=== PATIENT | male | born 1980 | race Caucasian/White ===

== ENCOUNTER 2016-05-03 10:50 | Emergency (ER) | payer MEDICAID ==
[2016-05-03] MEDS ORDERED: NS 1,000 ML IV ONE (11:13)
[2016-05-03] MEDS ORDERED: LORazepam 2 MG/ML INJ IVP ONE ×2 (11:13→13:06)
[2016-05-03] MEDS ORDERED: PANTOPRAZOLE SODIUM 40 MG in NS 100 ML IV ONE (11:13)
--- NOTE | 2016-05-03 11:16 | EDPHY ---
H & P Time Seen by Provider: 05/03/16 11:00 HPI/ROS: CHIEF COMPLAINT: Vomiting HISTORY OF PRESENT ILLNESS: 35-year-old male presents to the emergency department by ambulance complaining of multiple episodes of vomiting and feeling extremely anxious. The patient has a history of anxiety. Patient recently moved here from [place] and has been on Klonopin in the past for his anxiety although since he has lived in [place] the last month and half he has been without his Klonopin. Feels extremely anxious and has vomited multiple times. He states any time he moves he becomes extremely anxious and vomits. Has had this in the past. He describes diffuse abdominal pain. Drinks alcohol on occasion. He does smoke marijuana daily. No diarrhea. No known ill contacts. No other recent travel. No fevers or chills. No chest pain or difficulty breathing currently. The patient has also been on Lexapro in the past however he did not find this helpful and did not continue taking this medication. REVIEW OF SYSTEMS: Constitutional: No fever, no chills. Eyes: No double or blurry vision. ENT: No sore throat. Respiratory: No cough, no shortness of breath. Cardiac: No chest pain. Gastrointestinal: Abdominal pain, vomiting. No diarrhea. Genitourinary: No dysuria. Musculoskeletal: No neck or back pain. Skin: No rashes. Neurological: No headache. Past Medical/Surgical History: Anxiety, marijuana use Social History: Single from [place] Smoking Status: Current every day smoker Physical Exam: General Appearance: Alert, anxious, hyperventilating Eyes: Pupils equal and round. Extraocular motions are all intact. ENT: Mouth: Mucous membranes very dry. Respiratory: No wheezing, rhonchi, or rales, lungs are clear to auscultation. Cardiovascular: Regular rate and rhythm. Gastrointestinal: Abdomen is soft. Diffusely tender to palpate with no localizing pain. No rebound, guarding or masses noted. Neurological: Alert and oriented x 3, cranial nerves II through XII grossly intact Skin: Warm and dry, no rashes. Musculoskeletal: Nontender to palpate along the cervical, thoracic or lumbar spine. Neck is supple. No nuchal rigidity. Extremities: Full range of motion and no peripheral edema. Psychiatric: Patient is oriented X 3, there is no agitation. Constitutional: Initial Vital Signs Temperature (C) 36.4 C 05/03/16 10:50 Heart Rate 57 L 05/03/16 10:50 Respiratory Rate 22 H 05/03/16 10:50 Blood Pressure 152/93 H 05/03/16 10:50 O2 Sat (%) 100 05/03/16 10:50 O2 Delivery Mode Room Air O2 (L/minute) 2 Allergies/Adverse Reactions: cetylpyridinium chloride [From Cepacol] Allergy (Verified 05/03/16 11:05) Home Medications: Medication Instructions Recorded Methadone Oral Liquid 60 mg PO DAILY 01/21/16 LORazepam [Ativan] 1 mg PO Q6-8PRN PRN #10 tab 05/03/16 Medical Decision Making ED Course/Re-evaluation: 35-year-old male presents to the emergency department with multiple episodes of vomiting and feeling extremely anxious. He recently stopped his Klonopin. Patient had an IV established and the patient was given 1 mg of Ativan IV, 4 mg of Zofran IV and IV normal saline. He was given additional 1 mg Ativan IV. The patient was feeling much better. He was tolerating p.o. fluids. He was given a prescription for additional tablets of Ativan and given primary care referral. Differential Diagnosis: Including but not limited to anxiety, vomiting, dehydration, withdrawal - Data Points Laboratory Results: Laboratory Results 05/03/16 11:00 05/03/16 11:00 05/03/16 05/03/16 11:00 11:00 WBC 10.85 10^3/uL H 10^3/uL (3.80-9.50) RBC 5.44 10^6/uL 10^6/uL (4.40-6.38) Hgb 16.7 g/dL g/dL (13.7-17.5) Hct 47.0 % % (40.0-51.0) MCV 86.4 fL fL (81.5-99.8) MCH 30.7 pg pg (27.9-34.1) MCHC 35.5 g/dL g/dL (32.4-36.7) RDW 11.9 % % (11.5-15.2) Plt Count 349 10^3/uL 10^3/uL (150-400) MPV 10.0 fL fL (8.7-11.7) Neut % (Auto) 89.3 % H % (39.3-74.2) Lymph % (Auto) 6.8 % L % (15.0-45.0) [place] % (Auto) 2.9 % L % (4.5-13.0) Eos % (Auto) 0.0 % L % (0.6-7.6) Baso % (Auto) 0.5 % % (0.3-1.7) Nucleat RBC Rel Count 0.0 % % (0.0-0.2) Absolute Neuts (auto) 9.69 10^3/uL H 10^3/uL (1.70-6.50) Absolute Lymphs (auto) 0.74 10^3/uL L 10^3/uL (1.00-3.00) Absolute Monos (auto) 0.32 10^3/uL 10^3/uL (0.30-0.80) Absolute Eos (auto) 0.00 10^3/uL L 10^3/uL (0.03-0.40) Absolute Basos (auto) 0.05 10^3/uL 10^3/uL (0.02-0.10) Absolute Nucleated RBC 0.00 10^3/uL 10^3/uL (0-0.01) Immature Gran % 0.5 % % (0.0-1.1) Immature Gran # 0.05 10^3/uL 10^3/uL (0.00-0.10) Sodium 143 mEq/L mEq/L (134-144) Potassium 4.3 mEq/L mEq/L (3.5-5.2) Chloride 106 mEq/L mEq/L (97-110) Carbon Dioxide 20 mEq/l L mEq/l (22-31) Anion Gap 17 mEq/L H mEq/L (8-16) BUN 12 mg/dL mg/dL (7-23) Creatinine 0.9 mg/dL mg/dL (0.7-1.3) Estimated GFR > 60 Glucose 122 mg/dL H mg/dL (70-100) Calcium 10.4 mg/dL mg/dL (8.5-10.4) Medications Given: Discontinued Medications Sodium Chloride (Ns) 1,000 mls @ 0 mls/hr IV ONCE ONE PRN Reason: Wide Open Stop: 05/03/16 11:14 Last Admin: 05/03/16 11:22 Dose: 1,000 mls Pantoprazole Sodium 40 mg/ (Sodium Chloride) 100 mls @ 200 mls/hr IV EDNOW ONE Stop: 05/03/16 11:42 Last Admin: 05/03/16 11:22 Dose: 100 mls Lorazepam (Ativan Injection) 1 mg IVP EDNOW ONE Stop: 05/03/16 11:14 Last Admin: 05/03/16 11:22 Dose: 1 mg Lorazepam (Ativan Injection) 1 mg IVP EDNOW ONE Stop: 05/03/16 13:07 Last Admin: 05/03/16 13:15 Dose: 1 mg Departure - Departure Disposition: Home, Routine, Self-Care Clinical Impression: Anxiety Vomiting Qualifiers: Vomiting type: unspecified Vomiting Intractability: non-intractable Nausea presence: with nausea Qualified Code(s): R11.2 - Nausea with vomiting, unspecified Condition: Good Instructions: Acute Nausea and Vomiting (ED), Anxiety (ED) Additional Instructions: Follow-up with primary care provider to discuss medications you can use for your anxiety. Return to the emergency department if you developed recurring vomiting or if you feel worse in any way. Referrals: Kandi Herrera DO [Doctor of Osteopathy] - 2-3 days, call for appt. (Primary care provider educational program director) Prescriptions: LORazepam [Ativan] 1 mg PO Q6-8PRN PRN #10 tab PRN Reason: Anxiety
[2016-05-03 11:21] LABS: % IMMATURE GRANULYOCYTES 0.5 % (0.0-1.1); ABSOLUTE IMMATURE GRANULOCYTES 0.05 10^3/uL (0.00-0.10); ADD DIFF? NO; ADD MORPH? NO; ADD SCAN? NO; ATYPICAL LYMPHOCYTE FLAG 0 (0-99); FRAGMENT RBC FLAG 0 (0-99); HEMOGLOBIN 16.7 g/dL (13.7-17.5); LEFT SHIFT FLG 0 (0-99); LIPEMIA HEMOLYSIS FLAG 90 (0-99); MEAN CELL HEMOGLOBIN 30.7 pg (27.9-34.1); MEAN CELL HEMOGLOBIN CONCENTR. 35.5 g/dL (32.4-36.7); MEAN CELL VOLUME 86.4 fL (81.5-99.8); PLATELET CLUMPS FLAG 10 (0-99); PLATELET COUNT 349 10^3/uL (150-400); RED BLOOD CELL COUNT 5.44 10^6/uL (4.40-6.38); RED CELL DISTRIBUTION WIDTH 11.9 % (11.5-15.2)
[2016-05-03 11:33] LABS: ANION GAP 17 mEq/L (8-16); CALCIUM 10.4 mg/dL (8.5-10.4); CARBON DIOXIDE 20 mEq/l (22-31); CHLORIDE 106 mEq/L (97-110); CREATININE 0.9 mg/dL (0.7-1.3); GLOMERULAR FILTRATION RATE > 60; GLUCOSE 122 mg/dL (70-100); POTASSIUM 4.3 mEq/L (3.5-5.2); SODIUM 143 mEq/L (134-144)
[2016-05-03 15:25] VITALS: BP 123/79; PULSE 62; RESP 16; TEMP 98.8; O2SAT 98
== END 2016-05-03 15:26 | disposition home or self-care (01) ==
LOC: EDUNIT#
DX: F41.9 Anxiety disorder, unspecified (principal); R11.2 Nausea with vomiting, unspecified; F17.200 Nicotine dependence, unspecified, uncomplicated
CPT/HCPCS: 96365; J2060

== ENCOUNTER 2016-05-28 15:52 | Emergency (ER) | payer MEDICAID ==
[2016-05-28 16:07] VITALS: O2SAT 95
[2016-05-28] MEDS ORDERED: NS 1,000 ML IV ONE (16:13)
--- NOTE | 2016-05-28 16:17 | EDPHY ---
H & P Stated Complaint: FELL 13FT OFF LADDER HIT HEAD/BACK/NECK HPI/ROS: CHIEF COMPLAINT: Fall from 26 feet HISTORY OF PRESENT ILLNESS: Patient is a 35-year-old man who states that he fell off of a ladder. He landed on his back and head. He has a small abrasion and hematoma to his right occiput as well as abrasions to his shoulder and back. He states that he feels confused and slightly dazed. He is A&O x2. He states that it is Thursday rather than Thursday. He denies any recent drug or alcohol use. Denies any significant past medical history. He is moving all extremities. He walked into the emergency department. He is placed in a cervical collar by nursing staff. His vital signs are stable. He denies chest pain or abdominal pain. Denies shortness of breath. REVIEW OF SYSTEMS: Constitutional: denies: chills, fever, recent illness, recent injury EENTM: denies: blurred vision, double vision, nose congestion Respiratory: denies: cough, shortness of breath Cardiac: denies: chest pain, irregular heart rate, lightheadedness, palpitations Gastrointestinal/Abdominal: denies: abdominal pain, diarrhea, nausea, vomiting, blood streaked stools Genitourinary: denies: dysuria, frequency, hematuria, pain Musculoskeletal: See HPI Skin: denies: lesions, rash, jaundice, bruising Neurological: denies: headache, numbness, paresthesia, tingling, dizziness, weakness Hematologic/Lymphatic: denies: blood clots, easy bleeding, easy bruising Immunologic/allergic: denies: HIV/AIDS, transplant Nursing assessment reviewed Vital signs reviewed normal Patient is mildly confused and slightly lethargic but answering most questions appropriately c-collar in place, HEAD: Small abrasion and small hematoma to left occipital region no raccoon eyes, no Colon sign. NECK: is nontender and has painless range of motion, trachea is midline, collar left in place due to mental status EYES: pupils equal round reactive to light and accommodating, extraocular muscles are intact no palsy or entrapment, no subconjunctival hemorrhage ENT: Normal external inspection, airway intact, no dental or oral injuries, no clotted nasal blood, no septal hematoma, no hemotympanum CARDIOVASCULAR: heart sounds normal, not tachycardic or bradycardic, Chest is non-tender no rib tenderness no palpable fracture, no crepitus, no subcutaneous emphysema RESPIRATORY: no splinting, no paradoxical movements, gross sounds normal, no wheezes no rales no rhonchi, no respiratory distress ABDOMEN: Abdomen is nontender in all 4 quadrants no guarding no rebound, no distention, no hernias, no masses or bruits. GENITAL/RECTAL: Normal external inspection, no blood at urethral meatus, Stable pelvis NEUROLOGIC/PSYCH: Oriented x3, cranial nerves normal as assessed, face symmetrical, sensation normal, motor grossly normal, not perseverating, cranial nerves II through XII intact normal reflexes Chancellor Coma score: 15 SKIN: Intact, warm, dry, no ecchymosis, abrasions to right shoulder and back nondiaphoretic. BACK: No CVA tenderness, no vertebral point tenderness, no muscle spasm normal range of motion EXTREMITIES: Atraumatic, pelvis stable, nontender able to bear weight, no pulse deficit, normal range of motion, normal color and temperature Source: Patient Exam Limitations: No limitations - Personal History Current Tetanus/Diphtheria Vaccine: Yes Tetanus Vaccine Date: < 10 years - Medical/Surgical History Hx Asthma: No Hx Chronic Respiratory Disease: No Hx Diabetes: No Hx Cardiac Disease: No Hx Renal Disease: No Hx Cirrhosis: No Hx Alcoholism: No Hx HIV/AIDS: No Hx Splenectomy or Spleen Trauma: No Other PMH: heroin recovery x 1 year. - Family History Significant Family History: No pertinent family hx - Social History Smoking Status: Current some day smoker Alcohol Use: Sober Drug Use: Marijuana Constitutional: Initial Vital Signs Temperature (C) 36.6 C 05/28/16 15:55 Heart Rate 54 L 05/28/16 15:55 Respiratory Rate 18 05/28/16 15:55 Blood Pressure 131/72 H 05/28/16 15:55 O2 Sat (%) 95 05/28/16 15:55 O2 Delivery Mode Room Air Allergies/Adverse Reactions: cefaclor [From Ceclor] Allergy (Verified 05/28/16 16:02) cetylpyridinium chloride [From Cepacol] Allergy (Verified 05/03/16 11:05) Home Medications: Medication Instructions Recorded Methadone Oral Liquid 60 mg PO DAILY 01/21/16 Prozac 20 MG (*) 05/28/16 Medical Decision Making - Diagnostics Imaging: Imaging Impressions Abdomen CT 05/28/16 16:13 Impression: 1. There is no acute intrathoracic abnormality. 2. Possible type I sprain injury of the right acromioclavicular joint. Contrast-Enhanced CT Scan of the Abdomen: The liver and the spleen are mildly enlarged, respectively measuring 18.6 and 13.3 cm in cephalocaudal diameter (as a point of reference, these previously measured 17.4 and 12.7 cm in cephalocaudal diameter). The gallbladder, bile ducts, pancreas, adrenal glands, and the kidneys are normal in appearance. The aorta tapers normally, and the IVC is normal in caliber. Images were acquired before the hepatic veins have yet opacified. There is no ascites or free air. The CT appearance of small and large bowel is unremarkable. There is a lumbosacral segmentation transitional anatomic variant with a pseudoarthrosis on the left, and there is also advanced degenerative disk disease at L4-L5 with endplate sclerosis and dorsal traction osteophyte formation. There is also some broad-based circumferential disk bulging and some facet hypertrophy resulting in moderate central canal stenosis at L4-L5. Contrast-Enhanced CT Scan of the Pelvis: There are no masses, free fluid, or free air. The bladder has a normal contour. There is normal enhancement of the vasculature. The soft tissues are normal in appearance. The prostate gland and the seminal vesicles are unremarkable. Each femoral head is well-seated within its respective acetabulum, with no pelvic or hip fracture identified. There is no contrast extravasation. Impression: 1. There is no acute intraabdominal abnormality. 2. Mild hepatosplenomegaly. Findings were discussed with NOLAN BOOTHE MD at 18:19, on 05/28/2016. Cervical Spine CT 05/28/16 16:13 Impression: 1. There is no acute abnormality identified on this unenhanced CT evaluation. 2. Potential benign arachnoid cyst at the anterolateral right middle cranial fossa peripheral lateral to the right temporal cortex (versus an unusual beam hardening artifact). This could be further evaluated with MR imaging, as clinically directed. UNENHANCED CT SCAN OF THE CERVICAL SPINE TECHNIQUE: A multidetector unenhanced helical CT scan was obtained from the clivus caudally through the upper thoracic spine, with images reformatted at 1.50 mm increments, and are reviewed in soft tissue, bone, and lung windows. Parasagittal and paracoronal reconstructed images are reviewed on the workstation. The DFOV is 14.2 cm. A dose reduction protocol was used. COMPARISON STUDY: None. FINDINGS: The cervical vertebral body heights, posterior alignments, and the disk spaces are preserved. There is no acute fracture, or facet malalignment. The interspinous distances are normal. The craniocervical junction is normal. The predental space, and the atlantoaxial lateral mass alignment is normal. The base and the tip of the dens are normal. There is no central canal stenosis, neural foraminal impingement, or focal disk herniation identified. There is no prevertebral hematoma or epidural hematoma identified. The prevertebral soft tissues are normal, as are the lung apices. The superior mediastinal structures are unremarkable. IMPRESSION: Normal unenhanced CT scan of the cervical spine. If there is further clinical concern regarding the patient's cervical symptoms, MR imaging could be considered, if not otherwise contraindicated. Findings and recommendations were discussed with NOLAN BOOTHE MD at 18:01 , on 05/28/2016. Chest CT 05/28/16 16:13 Impression: 1. There is no acute intrathoracic abnormality. 2. Possible type I sprain injury of the right acromioclavicular joint. Contrast-Enhanced CT Scan of the Abdomen: The liver and the spleen are mildly enlarged, respectively measuring 18.6 and 13.3 cm in cephalocaudal diameter (as a point of reference, these previously measured 17.4 and 12.7 cm in cephalocaudal diameter). The gallbladder, bile ducts, pancreas, adrenal glands, and the kidneys are normal in appearance. The aorta tapers normally, and the IVC is normal in caliber. Images were acquired before the hepatic veins have yet opacified. There is no ascites or free air. The CT appearance of small and large bowel is unremarkable. There is a lumbosacral segmentation transitional anatomic variant with a pseudoarthrosis on the left, and there is also advanced degenerative disk disease at L4-L5 with endplate sclerosis and dorsal traction osteophyte formation. There is also some broad-based circumferential disk bulging and some facet hypertrophy resulting in moderate central canal stenosis at L4-L5. Contrast-Enhanced CT Scan of the Pelvis: There are no masses, free fluid, or free air. The bladder has a normal contour. There is normal enhancement of the vasculature. The soft tissues are normal in appearance. The prostate gland and the seminal vesicles are unremarkable. Each femoral head is well-seated within its respective acetabulum, with no pelvic or hip fracture identified. There is no contrast extravasation. Impression: 1. There is no acute intraabdominal abnormality. 2. Mild hepatosplenomegaly. Findings were discussed with NOLAN BOOTHE MD at 18:19, on 05/28/2016. Head CT 05/28/16 16:13 Impression: 1. There is no acute abnormality identified on this unenhanced CT evaluation. 2. Potential benign arachnoid cyst at the anterolateral right middle cranial fossa peripheral lateral to the right temporal cortex (versus an unusual beam hardening artifact). This could be further evaluated with MR imaging, as clinically directed. UNENHANCED CT SCAN OF THE CERVICAL SPINE TECHNIQUE: A multidetector unenhanced helical CT scan was obtained from the clivus caudally through the upper thoracic spine, with images reformatted at 1.50 mm increments, and are reviewed in soft tissue, bone, and lung windows. Parasagittal and paracoronal reconstructed images are reviewed on the workstation. The DFOV is 14.2 cm. A dose reduction protocol was used. COMPARISON STUDY: None. FINDINGS: The cervical vertebral body heights, posterior alignments, and the disk spaces are preserved. There is no acute fracture, or facet malalignment. The interspinous distances are normal. The craniocervical junction is normal. The predental space, and the atlantoaxial lateral mass alignment is normal. The base and the tip of the dens are normal. There is no central canal stenosis, neural foraminal impingement, or focal disk herniation identified. There is no prevertebral hematoma or epidural hematoma identified. The prevertebral soft tissues are normal, as are the lung apices. The superior mediastinal structures are unremarkable. IMPRESSION: Normal unenhanced CT scan of the cervical spine. If there is further clinical concern regarding the patient's cervical symptoms, MR imaging could be considered, if not otherwise contraindicated. Findings and recommendations were discussed with NOLAN BOOTHE MD at 18:01 , on 05/28/2016. Images reviewed by ri ED Course/Re-evaluation: 6:40 p.m. we discussed the patient's CT results. He is reassured. He is feeling much better. His oriented. His cervical collar removed by me. He is eager to go home. We discussed concussions and the recovery from concussions and stepwise return to activity. The patient understands as well as his boss who is in the room. Differential Diagnosis: Partial list of the Differential diagnosis considered include but were not limited to; head injury, cervical spine injury, shoulder injury, abrasion and although unlikely based on the history and physical exam, I also considered fracture, intracranial hemorrhage, pneumothorax. I discussed these differential diagnoses and the plan with the patient as well as the usual and expected course. The patient understands that the diagnosis is provisional and that in medicine we are not always correct and that further workup is often warranted. Usual and customary warnings were given. All of the patient's questions were answered. The patient was instructed to return to the emergency department should the symptoms at all worsen or return, otherwise to followup with the physician as we discussed. - Data Points Laboratory Results: Laboratory Results 05/28/16 16:15 05/28/16 16:15 05/28/16 05/28/16 05/28/16 16:15 16:15 16:15 WBC 6.75 10^3/uL 10^3/uL (3.80-9.50) RBC 4.80 10^6/uL 10^6/uL (4.40-6.38) Hgb 14.7 g/dL g/dL (13.7-17.5) POC Hgb Hct 42.0 % % (40.0-51.0) POC Hct MCV 87.5 fL fL (81.5-99.8) MCH 30.6 pg pg (27.9-34.1) MCHC 35.0 g/dL g/dL (32.4-36.7) RDW 11.8 % % (11.5-15.2) Plt Count 310 10^3/uL 10^3/uL (150-400) MPV 9.0 fL fL (8.7-11.7) Neut % (Auto) 48.4 % % (39.3-74.2) Lymph % (Auto) 40.1 % % (15.0-45.0) [place] % (Auto) 8.3 % % (4.5-13.0) Eos % (Auto) 1.9 % % (0.6-7.6) Baso % (Auto) 1.0 % % (0.3-1.7) Nucleat RBC Rel Count 0.0 % % (0.0-0.2) Absolute Neuts (auto) 3.26 10^3/uL 10^3/uL (1.70-6.50) Absolute Lymphs (auto) 2.71 10^3/uL 10^3/uL (1.00-3.00) Absolute Monos (auto) 0.56 10^3/uL 10^3/uL (0.30-0.80) Absolute Eos (auto) 0.13 10^3/uL 10^3/uL (0.03-0.40) Absolute Basos (auto) 0.07 10^3/uL 10^3/uL (0.02-0.10) Absolute Nucleated RBC 0.00 10^3/uL 10^3/uL (0-0.01) Immature Gran % 0.3 % % (0.0-1.1) Immature Gran # 0.02 10^3/uL 10^3/uL (0.00-0.10) PT 13.2 SEC SEC (12.0-15.0) INR 1.01 (0.83-1.16) APTT 29.1 SEC SEC (23.0-38.0) POC Sodium Sodium 138 mEq/L mEq/L (134-144) POC Potassium Potassium 4.6 mEq/L mEq/L (3.5-5.2) POC Chloride Chloride 104 mEq/L mEq/L (97-110) Carbon Dioxide 26 mEq/l mEq/l (22-31) Anion Gap 8 mEq/L mEq/L (8-16) POC BUN BUN 13 mg/dL mg/dL (7-23) Creatinine 0.9 mg/dL mg/dL (0.7-1.3) POC Creatinine Estimated GFR > 60 Glucose 87 mg/dL mg/dL (70-100) POC Glucose Calcium 9.4 mg/dL mg/dL (8.5-10.4) Ethyl Alcohol < 10 mg/dL mg/dL (0-10) 05/28/16 16:12 WBC RBC Hgb POC Hgb 14.3 gm/dL L gm/dL (14.5-17.3) Hct POC Hct 42 % L % (42.8-50.6) MCV MCH MCHC RDW Plt Count MPV Neut % (Auto) Lymph % (Auto) [place] % (Auto) Eos % (Auto) Baso % (Auto) Nucleat RBC Rel Count Absolute Neuts (auto) Absolute Lymphs (auto) Absolute Monos (auto) Absolute Eos (auto) Absolute Basos (auto) Absolute Nucleated RBC Immature Gran % Immature Gran # PT INR APTT POC Sodium 142 mEq/L mEq/L (134-144) Sodium POC Potassium 4.2 mEq/L mEq/L (3.3-5.0) Potassium POC Chloride 102 mEq/L mEq/L (96-108) Chloride Carbon Dioxide Anion Gap POC BUN 12 mg/dL mg/dL (7-23) BUN Creatinine POC Creatinine 1.1 mg/dL mg/dL (0.8-1.5) Estimated GFR Glucose POC Glucose 88 mg/dL mg/dL (70-100) Calcium Ethyl Alcohol Medications Given: Discontinued Medications Sodium Chloride (Ns) 1,000 mls @ 0 mls/hr IV ONCE ONE PRN Reason: Wide Open Stop: 05/28/16 16:14 Last Admin: 05/28/16 16:27 Dose: 1,000 mls Point of Care Test Results: 05/28/16 16:12 POC Sodium 142 POC Potassium 4.2 POC Chloride 102 POC BUN 12 POC Creatinine 1.1 POC Glucose 88 Departure - Departure Disposition: Home, Routine, Self-Care Clinical Impression: Abrasion Shoulder pain Qualifiers: Laterality: right Chronicity: acute Qualified Code(s): M25.511 - Pain in right shoulder Concussion Qualifiers: Encounter type: initial encounter Loss of consciousness presence/duration: without LOC Qualified Code(s): S06.0X0A - Concussion without loss of consciousness, initial encounter Condition: Fair Instructions: Acromioclavicular Separation (ED), Concussion (ED) Referrals: DOUG KAMARA [Other] - As per Instructions
[2016-05-28 16:25] LABS: % IMMATURE GRANULYOCYTES 0.3 % (0.0-1.1); ABSOLUTE IMMATURE GRANULOCYTES 0.02 10^3/uL (0.00-0.10); ADD DIFF? NO; ADD MORPH? NO; ADD SCAN? NO; ATYPICAL LYMPHOCYTE FLAG 20 (0-99); FRAGMENT RBC FLAG 0 (0-99); HEMOGLOBIN 14.7 g/dL (13.7-17.5); LEFT SHIFT FLG 0 (0-99); LIPEMIA HEMOLYSIS FLAG 90 (0-99); MEAN CELL HEMOGLOBIN 30.6 pg (27.9-34.1); MEAN CELL VOLUME 87.5 fL (81.5-99.8); PLATELET CLUMPS FLAG 0 (0-99); PLATELET COUNT 310 10^3/uL (150-400); RED CELL DISTRIBUTION WIDTH 11.8 % (11.5-15.2)
[2016-05-28 16:41] LABS: ANION GAP 8 mEq/L (8-16); CALCIUM 9.4 mg/dL (8.5-10.4); CARBON DIOXIDE 26 mEq/l (22-31); CHLORIDE 104 mEq/L (97-110); CREATININE 0.9 mg/dL (0.7-1.3); ETHANOL SERUM < 10 mg/dL (0-10); GLOMERULAR FILTRATION RATE > 60; GLUCOSE 87 mg/dL (70-100); POTASSIUM 4.6 mEq/L (3.5-5.2); SODIUM 138 mEq/L (134-144)
[2016-05-28 16:43] LABS: INR 1.01 (0.83-1.16); PROTIME(PATIENT) 13.2 SEC (12.0-15.0)
[2016-05-28 16:44] LABS: APTT 29.1 SEC (23.0-38.0)
[2016-05-28] MEDS ORDERED: IOPAMIDOL (ISOVUE 370) 100 ML BTL IV ONE (17:01)
[2016-05-28 19:05] VITALS: BP 115/75; PULSE 70; RESP 16; TEMP 97.7
== END 2016-05-28 19:00 | disposition home or self-care (01) ==
DX: S06.0X0A Concussion without loss of consciousness, initial encounter (principal); S49.91XA Unspecified injury of right shoulder and upper arm, initial encounter; F17.200 Nicotine dependence, unspecified, uncomplicated; S40.211A Abrasion of right shoulder, initial encounter; W11.XXXA Fall on and from ladder, initial encounter; Y93.89 Activity, other specified; S06.0X0D Concussion without loss of consciousness, subsequent encounter; T14.8 Other injury of unspecified body region; W11.XXXD Fall on and from ladder, subsequent encounter
CPT/HCPCS: 82947-QW; G0480; Q9967

== ENCOUNTER 2016-05-28 22:50 | Emergency (ER) | payer MEDICAID ==
[2016-05-28 23:01] VITALS: RESP 16; TEMP 96.8; O2SAT 98
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
[2016-05-28 23:59] VITALS: BP 128/82; PULSE 46
== END 2016-05-28 23:58 | disposition home or self-care (01) ==
DX: S06.0X0D Concussion without loss of consciousness, subsequent encounter (principal); T14.8 Other injury of unspecified body region; F17.200 Nicotine dependence, unspecified, uncomplicated; W11.XXXD Fall on and from ladder, subsequent encounter

== ENCOUNTER 2016-07-14 17:13 | Emergency (ER) | payer MEDICAID ==
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
[2016-07-14 17:22] VITALS: RESP 16
[2016-07-14 17:46] VITALS: BP 124/72; PULSE 74; TEMP 97.5; O2SAT 96
== END 2016-07-14 17:45 | disposition home or self-care (01) ==
LOC: EDUNIT#
DX: S06.0X0D Concussion without loss of consciousness, subsequent encounter (principal); F17.200 Nicotine dependence, unspecified, uncomplicated; W18.39XD Other fall on same level, subsequent encounter

== ENCOUNTER 2016-07-16 08:07 | Emergency (ER) | payer MEDICAID ==
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
[2016-07-16 10:06] LABS: COLOR YELLOW; LEUKOCYTE ESTERASE,URINE NEGATIVE (NEGATIVE); NITRITE,URINE NEGATIVE (NEGATIVE)
[2016-07-16 10:35] LABS: % IMMATURE GRANULYOCYTES 0.2 % (0.0-1.1); ABSOLUTE IMMATURE GRANULOCYTES 0.01 10^3/uL (0.00-0.10); ADD DIFF? NO; ADD MORPH? NO; ADD SCAN? NO; ATYPICAL LYMPHOCYTE FLAG 0 (0-99); FRAGMENT RBC FLAG 0 (0-99); HEMATOCRIT 41.7 % (40.0-51.0); HEMOGLOBIN 14.7 g/dL (13.7-17.5); LEFT SHIFT FLG 0 (0-99); LIPEMIA HEMOLYSIS FLAG 90 (0-99); MEAN CELL HEMOGLOBIN 31.5 pg (27.9-34.1); MEAN CELL HEMOGLOBIN CONCENTR. 35.3 g/dL (32.4-36.7); MEAN CELL VOLUME 89.3 fL (81.5-99.8); MEAN PLATELET VOLUME 9.2 fL (8.7-11.7); PLATELET CLUMPS FLAG 20 (0-99); PLATELET COUNT 240 10^3/uL (150-400); RED BLOOD CELL COUNT 4.67 10^6/uL (4.40-6.38); RED CELL DISTRIBUTION WIDTH 12.4 % (11.5-15.2)
[2016-07-16 10:54] LABS: ANION GAP 8 mEq/L (8-16); CALCIUM 9.1 mg/dL (8.5-10.4); CARBON DIOXIDE 25 mEq/l (22-31); CHLORIDE 107 mEq/L (97-110); CREATININE 0.7 mg/dL (0.7-1.3); ETHANOL SERUM < 10 mg/dL (0-10); GLOMERULAR FILTRATION RATE > 60; GLUCOSE 94 mg/dL (70-100); SODIUM 140 mEq/L (134-144)
[2016-07-16] MEDS ORDERED: KETOROLAC 30 MG/1 ML SDV IVP ONE (10:59)
[2016-07-16 11:11] VITALS: BP 124/81; PULSE 68; RESP 14; TEMP 97.5; O2SAT 95
[2016-07-16] MEDS ORDERED: OXYCODONE/APAP 5/325MG PREPACK#4 BTL TAKEHOME ONE (11:57)
== END 2016-07-16 12:08 | disposition home or self-care (01) ==
LOC: EDUNIT#
DX: S09.90XA Unspecified injury of head, initial encounter (principal); S39.92XA Unspecified injury of lower back, initial encounter; F17.200 Nicotine dependence, unspecified, uncomplicated; Y08.89XA Assault by other specified means, initial encounter; Y92.89 Other specified places as the place of occurrence of the external cause; Y99.8 Other external cause status; Y93.39 Activity, other involving climbing, rappelling and jumping off
CPT/HCPCS: 80305; 96374; G0480; J1885

== ENCOUNTER 2016-07-20 15:20 | Emergency (ER) | payer MEDICAID ==
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
[2016-07-20 15:33] VITALS: RESP 18
[2016-07-20] MEDS ORDERED: ONDANSETRON 4 MG/2 ML VIAL ONE (15:37)
[2016-07-20] MEDS ORDERED: KETOROLAC 30 MG/1 ML SDV IVP ONE (15:47)
[2016-07-20] MEDS ORDERED: NS 1,000 ML IV ONE (15:47)
[2016-07-20 15:53] LABS: % IMMATURE GRANULYOCYTES 0.3 % (0.0-1.1); ABSOLUTE IMMATURE GRANULOCYTES 0.02 10^3/uL (0.00-0.10); ADD DIFF? NO; ADD MORPH? NO; ADD SCAN? NO; ATYPICAL LYMPHOCYTE FLAG 0 (0-99); FRAGMENT RBC FLAG 0 (0-99); HEMATOCRIT 42.6 % (40.0-51.0); HEMOGLOBIN 15.2 g/dL (13.7-17.5); LEFT SHIFT FLG 0 (0-99); LIPEMIA HEMOLYSIS FLAG 90 (0-99); MEAN CELL HEMOGLOBIN 31.3 pg (27.9-34.1); MEAN CELL HEMOGLOBIN CONCENTR. 35.7 g/dL (32.4-36.7); MEAN CELL VOLUME 87.7 fL (81.5-99.8); MEAN PLATELET VOLUME 9.1 fL (8.7-11.7); PLATELET CLUMPS FLAG 0 (0-99); PLATELET COUNT 323 10^3/uL (150-400); RED BLOOD CELL COUNT 4.86 10^6/uL (4.40-6.38); RED CELL DISTRIBUTION WIDTH 11.9 % (11.5-15.2)
[2016-07-20] MEDS ORDERED: ONDANSETRON 4 MG/2 ML VIAL IVP ONE (15:53)
[2016-07-20 15:59] LABS: ALANINE AMINOTRANSFERASE 67 IU/L (21-72); ALBUMIN 4.6 g/dL (3.5-5.0); ALKALINE PHOSPHATASE 73 IU/L (38-126); ANION GAP 10 mEq/L (8-16); ASPARTATE AMINOTRANSFERASE 103 IU/L (17-59); BILIRUBIN,TOTAL 1.2 mg/dL (0.1-1.4); BILIRUBIN-CONJUGATED 0.5 mg/dL (0.0-0.5); BILIRUBIN-UNCONJUGATED 0.7 mg/dL (0.0-1.1); CALCIUM 9.9 mg/dL (8.5-10.4); CARBON DIOXIDE 25 mEq/l (22-31); CHLORIDE 104 mEq/L (97-110); CREATININE 0.9 mg/dL (0.7-1.3); GLOMERULAR FILTRATION RATE > 60; GLUCOSE 108 mg/dL (70-100); SODIUM 139 mEq/L (134-144); TOTAL PROTEIN 7.7 g/dL (6.3-8.2)
[2016-07-20] MEDS ORDERED: LORazepam 2 MG/ML INJ IVP ONE (16:24)
[2016-07-20 16:48] VITALS: BP 141/69; PULSE 79; TEMP 98.6; O2SAT 100
== END 2016-07-20 16:50 | disposition home or self-care (01) ==
LOC: EDUNIT#
DX: F41.9 Anxiety disorder, unspecified (principal); F17.200 Nicotine dependence, unspecified, uncomplicated
CPT/HCPCS: 96374; J1885; J2060; J2405

== ENCOUNTER 2016-07-22 00:26 | Emergency (ER) | payer MEDICAID ==
[2016-07-22] MEDS ORDERED: FLUMAZENIL 0.5 MG/5 ML MDV IVP ONE (00:32)
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
[2016-07-22 00:51] LABS: % IMMATURE GRANULYOCYTES 0.3 % (0.0-1.1); ABSOLUTE IMMATURE GRANULOCYTES 0.02 10^3/uL (0.00-0.10); ADD DIFF? NO; ADD MORPH? NO; ADD SCAN? NO; ATYPICAL LYMPHOCYTE FLAG 10 (0-99); FRAGMENT RBC FLAG 0 (0-99); HEMATOCRIT 38.7 % (40.0-51.0); HEMOGLOBIN 13.6 g/dL (13.7-17.5); LEFT SHIFT FLG 0 (0-99); LIPEMIA HEMOLYSIS FLAG 90 (0-99); MEAN CELL HEMOGLOBIN 31.6 pg (27.9-34.1); MEAN CELL HEMOGLOBIN CONCENTR. 35.1 g/dL (32.4-36.7); MEAN CELL VOLUME 89.8 fL (81.5-99.8); MEAN PLATELET VOLUME 9.3 fL (8.7-11.7); PLATELET CLUMPS FLAG 10 (0-99); PLATELET COUNT 263 10^3/uL (150-400); RED BLOOD CELL COUNT 4.31 10^6/uL (4.40-6.38); RED CELL DISTRIBUTION WIDTH 11.9 % (11.5-15.2)
[2016-07-22 00:53] LABS: ANION GAP 8 mEq/L (8-16); CARBON DIOXIDE 27 mEq/l (22-31); CHLORIDE 106 mEq/L (97-110); CREATININE 0.8 mg/dL (0.7-1.3); ETHANOL SERUM < 10 mg/dL (0-10); GLOMERULAR FILTRATION RATE > 60; GLUCOSE 83 mg/dL (70-100); POTASSIUM 3.5 mEq/L (3.5-5.2); SALICYLATE < 1.0 mg/dL (2.0-20.0); SODIUM 141 mEq/L (134-144)
[2016-07-22] MEDS ORDERED: ONDANSETRON 4 MG/2 ML VIAL ONE (05:19)
[2016-07-22] MEDS ORDERED: ONDANSETRON 4 MG/2 ML VIAL IVP ONE (06:01)
[2016-07-22] MEDS ORDERED: HALOPERIDOL LACT 5 MG/ML INJ IVP ONE (06:10)
[2016-07-22] MEDS ORDERED: HALOPERIDOL LACT 5 MG/ML INJ ONE (06:10)
[2016-07-22 17:42] VITALS: BP 122/73; PULSE 64; RESP 18; TEMP 98.2; O2SAT 98
== END 2016-07-22 17:37 ==
LOC: EDUNIT#
DX: T42.4X2A Poisoning by benzodiazepines, intentional self-harm, initial encounter (principal); F19.10 Other psychoactive substance abuse, uncomplicated; F17.200 Nicotine dependence, unspecified, uncomplicated
CPT/HCPCS: 80305; 96374; G0480; J2405